=== PATIENT | male | born 1965 | race African-American/Black ===

== ENCOUNTER 2021-12-17 04:05 | Emergency (ER) | payer SELFPAY ==
[~2021-12-17] VITALS: Ht 175.3 cm; Wt 109.0 kg
[2021-12-17] MEDS ORDERED: CEPH500C2 MT (04:24)
[2021-12-17 05:22] VITALS: BP 171/86
== END 2021-12-17 05:22 | disposition home or self-care (01) ==
LOC: ER 04:05
DX: S51.811A Laceration without foreign body of right forearm, initial encounter (principal); X58.XXXA Exposure to other specified factors, initial encounter; Y93.89 Activity, other specified; Y92.89 Other specified places as the place of occurrence of the external cause; Y99.8 Other external cause status; I10 Essential (primary) hypertension
CPT/HCPCS: 99283